=== PATIENT | male | born 1975 | race Caucasian/White ===

== ENCOUNTER 2018-04-30 12:53 | Inpatient (IN) ==
--- NOTE | 2018-04-30 14:23 | ED ---
HPI General Chief complaint: Extremity Problem,Nontraumatic Stated complaint: Poss blood clot in leg Time Seen by Provider: 04/30/18 14:00 Source: patient and old records reviewed Mode of arrival: ambulatory Limitations: no limitations History of Present Illness HPI Narrative: Patient sent from Dr. Adams's office after ultrasound of left lower extremity showed a DVT of the left superficial femoral, popliteal, peroneal, posterior tibial vein. Patient states that he has had increasing pain in the leg for the past 3 days. MD Complaint: Reports extremity pain Onset (ago): day(s) (2) Pain Consistency: constant Location: Reports left and lower extremity Severity scale (1-10): 8 Quality: Reports stabbing and aching Radiation: Reports none Relieving factors: nothing Related Data Home Medications Medication Instructions Recorded Confirmed hydrocodone-acetaminophen 1 tab PO Q4H 04/30/18 04/30/18 Allergies Allergy/AdvReac Type Severity Reaction Status Date / Time bee venom protein (honey bee) Allergy Anaphylaxis Verified 04/30/18 14:04 [Bee sting] Review of Systems ROS: all other systems reviewed are negative [facility] Medical History Medical History Chronic pain (Acute) Left knee injury (Acute) Seizure (Acute) Surgical History Surgical History History of appendectomy (Acute) Hx of tonsillectomy (Acute) Social History Social History Substance History: Active Abuse Second Hand Smoke Exposure: No Smoking Status: Former smoker How Often Do You Have a Drink Containing Alcohol: 2 to 3 times a week Recent Travel in [facility] within the Last 8 Weeks: No Recent Out of Country Travel within the Last 8 Weeks: No Substance Abuse Detail Marijuana: Substance Use Status: Active Reason for Use: Get High Immunization History Tetanus Immunization: >5 Years Exam Const General: healthy appearing, no acute distress and anxious Orientation: alert and awake HENMT Head: normal to inspection and atraumatic Mouth: oral mucosae normal and moist mucous membranes Eyes Alignment and Position: position normal Periorbital: periorbital findings normal Conjunctivae: conjunctivae normal Neck Neck: normal visual inspection, full ROM and no lymphadenopathy Chest Chest: normal inspection of the chest, no masses and no tenderness Resp Effort & Inspection: normal respiratory effort and able to speak in complete sentences Auscultation: clear to auscultation bilaterally Cardio Rate: regular rate Rhythm: regular rhythm Pulses: posterior tibial pulses present Skin General: no rashes or lesions noted, turgor normal and dry skin Neuro General: alert, awake and oriented x3 Speech: speech normal Extrem Left lower extremity: full ROM; no cyanosis and no edema Other: Left lower extremity severe pain to palpation posteriorly from knee to ankle Psych Appearance: grossly normal Affect: normal affect Attitude: cooperative Course Initial Documented Vital Signs Temperature 98.8 F 04/30/18 12:54 Pulse Rate 113 H 04/30/18 12:54 Respiratory Rate 18 04/30/18 12:54 Blood Pressure 126/89 04/30/18 12:54 Pulse Oximetry 97 04/30/18 12:54 Last Documented Vital Signs Temperature 98.8 F 04/30/18 12:54 Pulse Rate 105 H 04/30/18 14:03 Respiratory Rate 18 04/30/18 14:03 Blood Pressure 139/88 04/30/18 14:03 Pulse Oximetry 97 04/30/18 14:03 Medical Decision Making MDM Narrative Medical decision making narrative: Patient has had pain in Dr. Arcos sent him for a ultrasound of his left lower extremity which came back positive for DVT. Will order labs reviewed [facility] which showed a left DVT of the superficial femoral, popliteal, peronial , posterior tibial veins Labs are normal Patient will be admitted for observation of DVT and started on anticoagulation with along with pain control Medical Screen Exam Complete: Yes Emergency Medical Condition: Yes Differential Diagnosis Differential Diagnosis: DVT, Leg pain, muscle pain, muscle cramp Lab Data Lab results reviewed: Yes I reviewed the patient's lab results. Result diagrams: 04/30/18 14:34 04/30/18 14:34 Lab Results 04/30/18 04/30/18 04/30/18 Range/Units 14:34 14:34 14:34 WBC 9.3 (4.0-11.0) th/mm3 RBC 5.26 (4.50-5.90) mil/mm3 Hgb 17.7 H (13.0-17.0) gm/dL Hct 50.2 (39.0-51.0) % MCV 95.4 (80.0-100.0) fL MCH 33.7 (27.0-34.0) pg MCHC 35.3 (32.0-36.0) % RDW 12.8 (11.6-17.2) % Plt Count 214 (150-450) th/mm3 MPV 9.0 (7.0-11.0) fL Prelim Diff (Auto) Slide review pending Neut % (Auto) 72.3 H (16.0-70.0) % Lymph % (Auto) 16.7 (9.0-44.0) % [place] % (Auto) 8.6 H (0.0-8.0) % Eos % (Auto) 1.5 (0.0-4.0) % Baso % (Auto) 0.9 (0.0-2.0) % Neut # (Auto) 6.7 (1.8-7.7) th/mm3 Lymph # (Auto) 1.6 (1.0-4.8) th/mm3 [place] # (Auto) 0.8 (0.0-0.9) th/mm3 Eos # (Auto) 0.1 (0.0-0.4) th/mm3 Baso # (Auto) 0.1 (0.0-0.2) th/mm3 WBC Differential . Diff Scan Auto diff confirmed Differential Comment . Platelet Estimate Normal (Normal) Platelet Morphology Enlarged H (Normal) PT 10.6 (9.8-11.6) sec INR 1.0 Ratio APTT 26.1 (24.3-30.1) sec Sodium 139 (136-145) meq/L Potassium 3.5 (3.5-5.1) meq/L Chloride 106 (98-107) meq/L Carbon Dioxide 23.9 (21.0-32.0) meq/L Anion Gap 9 (5-15) meq/L BUN 7 (7-18) mg/dL Creatinine 1.11 (0.60-1.30) mg/dL Estimated GFR 72 L (>89) mL/min Random Glucose 126 H (74-106) mg/dL Calcium 9.1 (8.5-10.1) mg/dL Total Bilirubin 1.3 H (0.2-1.0) mg/dL AST 19 (15-37) U/L ALT 21 (12-78) U/L Alkaline Phosphatase 147 H (45-117) U/L Total Protein 7.6 (6.4-8.2) g/dL Albumin 3.6 (3.4-5.0) g/dL Discharge Plan Discharge Disposition Patient Disposition: 30 Still Patient Discharge Condition Condition: Stable Discharge Details Diagnosis: Deep vein thrombosis of lower extremity, Intractable pain Physicians Team ED Provider: Radhames Castillo ED Midlevel Provider: Ilene Aburto Primary Care Provider: Primary Care Alem Fofana Attending Provider: Alba Suarez Discharge Interventions Interventions: Vital Signs Last Done: 04/30/18 14:03 Status ED Status: Admitted Patient
[2018-04-30 14:49] LABS: Baso # (Auto) 0.1 th/mm3 (0.0-0.2); Baso % (Auto) 0.9 % (0.0-2.0); Eos # (Auto) 0.1 th/mm3 (0.0-0.4); Eos % (Auto) 1.5 % (0.0-4.0); Hematocrit 50.2 % (39.0-51.0); Hemoglobin 17.7 gm/dL (13.0-17.0); Lymph # (Auto) 1.6 th/mm3 (1.0-4.8); Lymph % (Auto) 16.7 % (9.0-44.0); Mean Corpuscular HGB Conc 35.3 % (32.0-36.0); Mean Corpuscular Hemoglobin 33.7 pg (27.0-34.0); Mean Corpuscular Volume 95.4 fL (80.0-100.0); Mono # (Auto) 0.8 th/mm3 (0.0-0.9); Mono % (Auto) 8.6 % (0.0-8.0); Neut # (Auto) 6.7 th/mm3 (1.8-7.7); Neut % (Auto) 72.3 % (16.0-70.0); Platelet Count 214 th/mm3 (150-450); Red Blood Count 5.26 mil/mm3 (4.50-5.90); Red Cell Distribution Width 12.8 % (11.6-17.2); White Blood Count 9.3 th/mm3 (4.0-11.0)
[2018-04-30 15:00] LABS: Activated Partial Thrombo Time 26.1 sec (24.3-30.1); Prothrombin Time 10.6 sec (9.8-11.6)
[2018-04-30 15:21] LABS: Platelet Estimate Normal (Normal)
[2018-04-30 15:32] LABS: Alanine Aminotransferase 21 U/L (12-78); Albumin 3.6 g/dL (3.4-5.0); Anion Gap 9 meq/L (5-15); Aspartate Aminotransferase 19 U/L (15-37); Blood Urea Nitrogen 7 mg/dL (7-18); Calcium 9.1 mg/dL (8.5-10.1); Carbon Dioxide 23.9 meq/L (21.0-32.0); Chloride 106 meq/L (98-107); Glomerular Filtration Rate 72 mL/min (>89); Glucose,Random 126 mg/dL (74-106); Potassium 3.5 meq/L (3.5-5.1); Sodium 139 meq/L (136-145)
[2018-04-30 15:34] LABS: Alkaline Phosphatase 147 U/L (45-117); Total Protein 7.6 g/dL (6.4-8.2)
[2018-04-30] MEDS ORDERED: Acetaminophen 325 MG Tablet PO PRN (16:58)
[2018-04-30] MEDS ORDERED: Naloxone Inj 0.4 MG/ML Vial IV.PUSH PRN (16:58)
[2018-04-30] MEDS ORDERED: Bisacodyl 10 MG Supp RECTAL PRN (16:58)
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
--- NOTE | 2018-04-30 18:17 | CT ---
EXAM DATE: 04/30/2018 6:06 PM EDT AGE/SEX: 43 years / Male INDICATIONS: Chest Pain CLINICAL DATA: This is the patient's initial encounter. Patient reports that signs and symptoms have been present for 1 day and indicates a pain score of 4/10. MEDICAL/SURGICAL HISTORY: Seizures. Appendectomy. Tonsillectomy. RADIATION DOSE: 10.98 CTDI (mGy) COMPARISON: No prior exams available for comparison. TECHNIQUE: Volumetric scanning was performed using a multi-row detector CT scanner during bolus infu boubacar of 74ML ml Omnipaque 350 (iohexol) nonionic water-soluble contrast as a single exam dose. The d trish was post processed with a variety of visualization algorithms including full volume maximum inten sity projection and sliding thin slab reformation. Using automated exposure control and adjustment o f the mA and/or kV according to patient size, radiation dose was kept as low as reasonably achievable to obtain optimal diagnostic quality images. DICOM format image data is available electronically fo r review and comparison. FINDINGS: Pulmonary Arteries: Bilateral pulmonary emboli, right worse than left. Lung: Mild atelectasis in the right lung base.. Effusion: None. Mediastinum: No evidence of mediastinal or hilar adenopathy. Other: The axilla is unremarkable. Focal fatty infiltration at the falciform ligament of the liver. Upper abdominal viscera is otherwise intact. CONCLUSION: 1. Bilateral pulmonary emboli, right worse than left. 2. Minimal atelectatic changes in the right lung base. Electronically signed by: Fabricio Alonso MD 04/30/2018 6:15 PM EDT
[2018-04-30] MEDS: Enoxaparin Inj 80 MG/0.8 ML Syringe SQ SCH (20:33)
[2018-04-30] MEDS: Divalproex 500 MG ER Tablet PO SCH (20:33)
[2018-04-30] MEDS ORDERED: FYCOMPA PO SCH (21:00)
[2018-05-01] MEDS: Enoxaparin Inj 80 MG/0.8 ML Syringe SQ SCH (05:27)
[2018-05-01 06:23] LABS: Baso # (Auto) 0.1 th/mm3 (0.0-0.2); Baso % (Auto) 0.9 % (0.0-2.0); Eos # (Auto) 0.2 th/mm3 (0.0-0.4); Eos % (Auto) 2.6 % (0.0-4.0); Hematocrit 46.3 % (39.0-51.0); Hemoglobin 16.2 gm/dL (13.0-17.0); Lymph # (Auto) 1.9 th/mm3 (1.0-4.8); Lymph % (Auto) 24.7 % (9.0-44.0); Mean Corpuscular HGB Conc 35.1 % (32.0-36.0); Mean Corpuscular Hemoglobin 33.7 pg (27.0-34.0); Mono # (Auto) 0.8 th/mm3 (0.0-0.9); Mono % (Auto) 10.1 % (0.0-8.0); Neut # (Auto) 4.7 th/mm3 (1.8-7.7); Neut % (Auto) 61.7 % (16.0-70.0); Platelet Count 188 th/mm3 (150-450); Red Blood Count 4.82 mil/mm3 (4.50-5.90); Red Cell Distribution Width 12.9 % (11.6-17.2); White Blood Count 7.7 th/mm3 (4.0-11.0)
[2018-05-01] MEDS: Divalproex 500 MG ER Tablet PO SCH ×2 (08:38→22:46)
--- NOTE | 2018-05-01 10:26 | P.PNIM ---
Subjective Interval history: The patient was resting comfortably in bed. He said that he had some pain in his right lower back and right flank after receiving a Lovenox injection this morning. He was not made aware of the CT findings. He was hopeful to go home in the morning. Discussed with nursing. Physical Exam Vital signs: Vital Signs 04/30/18 12:54 04/30/18 14:03 04/30/18 16:43 Temperature 98.8 F Pulse Rate 113 H 105 H 93 H Respiratory Rate 18 18 18 Blood Pressure 126/89 139/88 159/81 H Pulse Oximetry 97 97 97 04/30/18 16:52 04/30/18 17:30 04/30/18 20:00 Temperature 98.0 F 97.5 F L Pulse Rate 84 95 H Respiratory Rate 18 16 20 Blood Pressure 123/78 135/96 H Pulse Oximetry 97 95 05/01/18 01:06 05/01/18 08:00 Temperature 98.1 F 97.8 F Pulse Rate 79 92 H Respiratory Rate 17 17 Blood Pressure 112/64 105/67 Pulse Oximetry 98 98 Intake & Output 04/30/18 05/01/18 05/01/18 18:59 06:59 18:59 Intake Total 400 / 400 Output Total 380 / 380 Balance -380 / -380 400 / 400 Weight 77.111 kg 77.11 kg Intake: Oral 400 / 400 Output: Urine 380 / 380 Other: # Voids 1 1 Narrative: GENERAL: No distress. SKIN: Warm and dry. HEAD: Atraumatic. Normocephalic. EYES: Pupils equal and round. No scleral icterus. No injection or drainage. ENT: No nasal bleeding or discharge. Mucous membranes pink and moist. NECK: Trachea midline. No JVD. CARDIOVASCULAR: Regular rate and rhythm. RESPIRATORY: No accessory muscle use. Clear to auscultation. Breath sounds equal bilaterally. GASTROINTESTINAL: Abdomen soft, non-tender, nondistended. Hepatic and splenic margins not palpable. MUSCULOSKELETAL: Extremities without clubbing, cyanosis, left lower extremity pain on palpation of the calf and thigh area. No edema. Tenderness to palpation of right lower back. No masses noted. NEUROLOGICAL: Awake and alert to person place time and situation. No obvious cranial nerve deficits. Motor grossly within normal limits. Five out of 5 muscle strength in the arms and legs. Normal speech. PSYCHIATRIC: Appropriate mood and affect; insight and judgment normal. Results - Labs CBC & Chem 7: 05/01/18 05:20 04/30/18 14:34 Laboratory Results - last 24 hr 04/30/18 04/30/18 04/30/18 14:34 14:34 14:34 WBC 9.3 RBC 5.26 Hgb 17.7 H Hct 50.2 MCV 95.4 MCH 33.7 MCHC 35.3 RDW 12.8 Plt Count 214 MPV 9.0 Prelim Diff (Auto) Slide review pending Neut % (Auto) 72.3 H Lymph % (Auto) 16.7 [place] % (Auto) 8.6 H Eos % (Auto) 1.5 Baso % (Auto) 0.9 Neut # (Auto) 6.7 Lymph # (Auto) 1.6 [place] # (Auto) 0.8 Eos # (Auto) 0.1 Baso # (Auto) 0.1 WBC Differential . Diff Scan Auto diff confirmed Differential Comment . Platelet Estimate Normal Platelet Morphology Enlarged H PT 10.6 INR 1.0 APTT 26.1 Sodium 139 Potassium 3.5 Chloride 106 Carbon Dioxide 23.9 Anion Gap 9 BUN 7 Creatinine 1.11 Estimated GFR 72 L Random Glucose 126 H Calcium 9.1 Total Bilirubin 1.3 H AST 19 ALT 21 Alkaline Phosphatase 147 H Total Protein 7.6 Albumin 3.6 05/01/18 05:20 WBC 7.7 RBC 4.82 Hgb 16.2 Hct 46.3 MCV 96.0 MCH 33.7 MCHC 35.1 RDW 12.9 Plt Count 188 MPV 9.0 Prelim Diff (Auto) Neut % (Auto) 61.7 Lymph % (Auto) 24.7 [place] % (Auto) 10.1 H Eos % (Auto) 2.6 Baso % (Auto) 0.9 Neut # (Auto) 4.7 Lymph # (Auto) 1.9 [place] # (Auto) 0.8 Eos # (Auto) 0.2 Baso # (Auto) 0.1 WBC Differential . Diff Scan Differential Comment Auto diff final Platelet Estimate Platelet Morphology PT INR APTT Sodium Potassium Chloride Carbon Dioxide Anion Gap BUN Creatinine Estimated GFR Random Glucose Calcium Total Bilirubin AST ALT Alkaline Phosphatase Total Protein Albumin - Imaging Impressions Chest CTA 04/30/18 00:00 CONCLUSION: 1. Bilateral pulmonary emboli, right worse than left. 2. Minimal atelectatic changes in the right lung base. Assessment and Plan - Assessment (1) Deep vein thrombosis of lower extremity Code(s): I82.409 - Acute embolism and thrombosis of unspecified deep veins of unspecified lower extremity Status: Inactive - Plan DVT/ PEs The pt was sent to the emergency room for left lower leg pain and findings of DVT as an outpatient. CTA indicative of bilateral PEs. Breathing well on room air. Pain controlled at this time. -switch Lovenox to Xarelto this evening. -pain control. -oxygen and nebs as needed. -physical therapy, incentive spirometry. -[facility] consult requested for possible HHC. Seizure disorder Chronic, no current complaints. -resume home Depakote and Fycompa. PPx: Lovenox/ Xarelto Discharge Planning: Anticipate d/c home in AM (1) Deep vein thrombosis of lower extremity Qualifiers: Affected thrombotic vein of extremity: popliteal Chronicity: acute Laterality: left Qualified Code(s): I82.432 - Acute embolism and thrombosis of left popliteal vein
[2018-05-01] MEDS: Morphine Inj 4 MG/ML Vial IV.PUSH PRN (17:34)
[2018-05-01] MEDS ORDERED: Morphine Inj 4 MG/ML Vial IV.PUSH ONE (17:52)
[2018-05-01] MEDS ORDERED: Diatrizoate Meglum/Diatrizoate Sod Liq 9 ML UDC PO ONE (17:53)
[2018-05-01] MEDS ORDERED: Rivaroxaban 15 MG Tablet PO SCH (18:00)
[2018-05-01] MEDS ORDERED: Etomidate Inj 20 MG/10 ML Ampul IV.PUSH ONE (18:21)
[2018-05-01] MEDS ORDERED: Etomidate Inj 40 MG/20 ML Vial IV.PUSH ONE (18:25)
[2018-05-01 18:31] LABS: Albumin 3.2 g/dL (3.4-5.0); Anion Gap 8 meq/L (5-15); Blood Urea Nitrogen 10 mg/dL (7-18); Calcium 8.8 mg/dL (8.5-10.1); Carbon Dioxide 29.8 meq/L (21.0-32.0); Chloride 99 meq/L (98-107); Glomerular Filtration Rate 67 mL/min (>89); Glucose,Random 84 mg/dL (74-106); Lipase 105 U/L (73-393); Potassium 3.9 meq/L (3.5-5.1); Sodium 137 meq/L (136-145)
[2018-05-01 18:33] LABS: Alanine Aminotransferase 19 U/L (12-78); Aspartate Aminotransferase 15 U/L (15-37)
[2018-05-01 18:37] LABS: Alkaline Phosphatase 148 U/L (45-117); Total Protein 7.6 g/dL (6.4-8.2)
[2018-05-01] MEDS ORDERED: Heparin Drip 25,000 UNIT/250 ML BAG IV.CONT PRN (18:40)
[2018-05-01] MEDS ORDERED: Heparin 10,000 UNITS/10 ML Vial (for IV use) IV.PUSH STA (18:40)
[2018-05-01] MEDS ORDERED: Heparin Drip 25,000 UNIT/250 ML BAG IV.CONT ONE (19:07)
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
[2018-05-01] MEDS ORDERED: Heparin 10,000 UNITS/10 ML Vial (for IV use) ONE (19:10)
[2018-05-01 19:15] LABS: Activated Partial Thrombo Time 27.4 sec (24.3-30.1); Prothrombin Time 10.4 sec (9.8-11.6)
--- NOTE | 2018-05-01 19:22 | XR ---
EXAM DATE: 05/01/2018 7:12 PM EDT AGE/SEX: 43 years / Male INDICATIONS: Chest pain. CLINICAL DATA: This is the patient's subsequent encounter. Patient reports that signs and symptoms h ave been present for 2 days and indicates a pain score of 7/10. MEDICAL/SURGICAL HISTORY: . Seizures. . Appendectomy. Tonsillectomy. COMPARISON: No prior exams available for comparison. FINDINGS: Heart size upper limits normal. Mild basilar atelectasis. No significant effusion. No pneumothorax. CONCLUSION: Basilar density which may represent atelectasis. No pneumothorax or significant effusion. Electronically signed by: Nayan Leiva MD 05/01/2018 7:20 PM EDT
[2018-05-01 20:17] LABS: Hematocrit 45.2 % (39.0-51.0); Hemoglobin 15.5 gm/dL (13.0-17.0); Mean Corpuscular HGB Conc 34.4 % (32.0-36.0); Mean Corpuscular Hemoglobin 32.9 pg (27.0-34.0); Mean Corpuscular Volume 95.7 fL (80.0-100.0); Mean Platelet Volume 8.8 fL (7.0-11.0); Platelet Count 209 th/mm3 (150-450); Red Blood Count 4.72 mil/mm3 (4.50-5.90); Red Cell Distribution Width 12.7 % (11.6-17.2); White Blood Count 12.4 th/mm3 (4.0-11.0)
[2018-05-01 21:19] LABS: ABG Base Excess 1.3 mmol/L (-2-2); ABG PCO2 29 mmHg (38-42); ABG PO2 272 mmHG (61-120)
[2018-05-01] MEDS: Heparin Drip 25,000 UNIT/250 ML BAG IV.CONT PRN (21:48)
--- NOTE | 2018-05-01 22:48 | ECG ---
Date Performed: 05/01/2018 Time Performed: 22:31:18 PTAGE: 43 years EKG: SINUS TACHYCARDIA WITH SHORT KS INTERVAL ABNORMAL RHYTHM ECG NO PREVIOUS TRACING DOCTOR: Jeffrey Obrien Interpretating Date/Time 05/01/2018 22:47:30
[2018-05-02 07:32] LABS: Hematocrit 46.4 % (39.0-51.0); Hemoglobin 16.2 gm/dL (13.0-17.0); Mean Corpuscular HGB Conc 34.9 % (32.0-36.0); Mean Corpuscular Hemoglobin 33.7 pg (27.0-34.0); Mean Corpuscular Volume 96.4 fL (80.0-100.0); Mean Platelet Volume 8.5 fL (7.0-11.0); Platelet Count 202 th/mm3 (150-450); Red Blood Count 4.81 mil/mm3 (4.50-5.90); Red Cell Distribution Width 12.7 % (11.6-17.2); White Blood Count 9.8 th/mm3 (4.0-11.0)
[2018-05-02 07:58] LABS: Anion Gap 7 meq/L (5-15); Blood Urea Nitrogen 11 mg/dL (7-18); Chloride 99 meq/L (98-107); Glomerular Filtration Rate 77 mL/min (>89); Glucose,Random 91 mg/dL (74-106); Potassium 3.9 meq/L (3.5-5.1); Sodium 137 meq/L (136-145)
[2018-05-02] MEDS: Divalproex 500 MG ER Tablet PO SCH ×2 (08:27→21:35)
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
[2018-05-02 10:25] LABS: Bilirubin,Urine Negative (Negative); Clarity,Urine Clear (Clear); Color,Urine Yellow (Yellw/Straw); Glucose,Urine (UA) Negative (Negative); Leukocyte Esterase,Urine Negative (Negative); Mucus,Urine Few /lpf (Occasional); Nitrite,Urine Negative (Negative); Specific Gravity,Urine 1.024 (1.002-1.035); Squamous Epithelial Cell,Urine <1 /hpf (0-5)
--- NOTE | 2018-05-02 11:10 | ECHRPT ---
Indication: RIGHT HEART STRAIN/ PE CONCLUSIONS Normal left ventricular size. Wall thickness is normal. The left ventricular systolic function is low normal with an estimated ejection fraction in the rang e of 50%. The right ventricular size is normal. The right ventricular systoilc function is normal. The estimated pulmonary arterial pressure is 18 mmHg. (done STAT- called to Dr Ellis 20:37 05/01/18) BP: / HR: Rhythm: MEASUREMENTS (Male / Female) Normal Values Technical Quality: 2D ECHO LV Diastolic Diameter PLAX 4.5 cm 4.2 - 5.9 / 3.9 - 5.3 cm LV Systolic Diameter PLAX 3.6 cm IVS Diastolic Thickness 0.8 cm 0.6 - 1.0 / 0.6 - 0.9 cm LVPW Diastolic Thickness 0.8 cm 0.6 - 1.0 / 0.6 - 0.9 cm LV Relative Wall Thickness 0.3 RV Internal Dim ED PLAX 2.0 cm DOPPLER Mitral E Point Velocity 54.3 cm/s Mitral A Point Velocity 56.8 cm/s Mitral E to A Ratio 1.0 TR Peak Velocity 177.0 cm/s TR Peak Gradient 12.5 mmHg FINDINGS LEFT VENTRICLE Normal left ventricular size. Wall thickness is normal. The left ventricular systolic function is low normal with an estimated ejection fraction in the rang e of 50%. RIGHT VENTRICLE The right ventricular size is normal. The right ventricular systoilc function is normal. LEFT ATRIUM The left atrial size is normal. RIGHT ATRIUM The right atrial size is normal. ATRIAL SEPTUM Normal atrial septal thickness without atrial level shunting by limited color doppler interrogation. AORTA The aortic root and proximal ascending aorta are normal in size on limited imaging. MITRAL VALVE Structurally normal mitral valve. No mitral valve stenosis or regurgitation. AORTIC VALVE Trileaflet aortic valve. No aortic valve stenosis or regurgitation. TRICUSPID VALVE The estimated pulmonary arterial pressure is 18 mmHg. PULMONARY VALVE The pulmonary valve is not well visualized. VESSELS The inferior vena cava is normal in size. PERICARDIUM No pericardial effusion. Erin Gilliam MD, FACC (Electronically Signed) Final Date:02 May 2018 11:08
[2018-05-02] MEDS: Heparin Drip 25,000 UNIT/250 ML BAG IV.CONT PRN (11:59)
[2018-05-02] MEDS: Morphine Inj 4 MG/ML Vial IV.PUSH PRN (15:31)
[2018-05-03] MEDS: Heparin Drip 25,000 UNIT/250 ML BAG IV.CONT PRN ×2 (02:41→22:32)
[2018-05-03] MEDS: Morphine Inj 4 MG/ML Vial IV.PUSH PRN ×2 (06:13→13:15)
[2018-05-03] MEDS: Divalproex 500 MG ER Tablet PO SCH ×2 (08:27→22:18)
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
[2018-05-03 10:24] LABS: Hematocrit 44.6 % (39.0-51.0); Hemoglobin 15.2 gm/dL (13.0-17.0); Mean Corpuscular HGB Conc 34.2 % (32.0-36.0); Mean Corpuscular Volume 96.4 fL (80.0-100.0); Platelet Count 199 th/mm3 (150-450); Red Blood Count 4.62 mil/mm3 (4.50-5.90); Red Cell Distribution Width 12.7 % (11.6-17.2); White Blood Count 11.2 th/mm3 (4.0-11.0)
[2018-05-03 11:47] LABS: Calcium 8.9 mg/dL (8.5-10.1); Carbon Dioxide 34.8 meq/L (21.0-32.0); Magnesium 2.2 mg/dL (1.5-2.5); Phosphorus 3.6 mg/dL (2.5-4.9); Potassium 3.9 meq/L (3.5-5.1)
--- NOTE | 2018-05-03 12:53 | XR ---
EXAM DATE: 05/03/2018 12:33 PM EDT AGE/SEX: 43 years / Male INDICATIONS: Shortness of breath. CLINICAL DATA: This is the patient's subsequent encounter. Patient reports that signs and symptoms h ave been present for 3 days and indicates a pain score of 0/10. MEDICAL/SURGICAL HISTORY: Seizures. Appendectomy. Tonsillectomy. COMPARISON: [facility] [place], CHEST 1V SINGLE AP, 05/01/2018. . FINDINGS: Moderate parenchymal changes right base. Left lung clear. The heart and pulmonary vascularity are normal. The portion of the bony skeleton visualized is unremarkable. CONCLUSION: Moderate parental changes right base. Inflammatory process would be consideration Electronically signed by: Chapin Palacios MD 05/03/2018 12:52 PM EDT
[2018-05-04] MEDS: Morphine Inj 4 MG/ML Vial IV.PUSH PRN ×5 (00:39→23:33)
[2018-05-04 06:15] LABS: Baso % (Auto) 0.2 % (0.0-2.0); Eos # (Auto) 0.1 th/mm3 (0.0-0.4); Eos % (Auto) 0.8 % (0.0-4.0); Hematocrit 40.7 % (39.0-51.0); Hemoglobin 14.2 gm/dL (13.0-17.0); Lymph % (Auto) 12.5 % (9.0-44.0); Mean Corpuscular HGB Conc 34.9 % (32.0-36.0); Mean Corpuscular Hemoglobin 33.4 pg (27.0-34.0); Mean Corpuscular Volume 95.6 fL (80.0-100.0); Mean Platelet Volume 9.3 fL (7.0-11.0); Mono # (Auto) 0.9 th/mm3 (0.0-0.9); Mono % (Auto) 11.2 % (0.0-8.0); Neut # (Auto) 6.1 th/mm3 (1.8-7.7); Neut % (Auto) 75.3 % (16.0-70.0); Platelet Count 207 th/mm3 (150-450); Red Blood Count 4.26 mil/mm3 (4.50-5.90); Red Cell Distribution Width 12.6 % (11.6-17.2); White Blood Count 8.2 th/mm3 (4.0-11.0)
[2018-05-04 06:31] LABS: Anion Gap 8 meq/L (5-15); Blood Urea Nitrogen 8 mg/dL (7-18); Calcium 8.7 mg/dL (8.5-10.1); Carbon Dioxide 32.8 meq/L (21.0-32.0); Chloride 94 meq/L (98-107); Glomerular Filtration Rate Greater Than 89 mL/min (>89); Glucose,Random 87 mg/dL (74-106); Magnesium 2.1 mg/dL (1.5-2.5); Phosphorus 3.9 mg/dL (2.5-4.9); Potassium 3.9 meq/L (3.5-5.1); Sodium 135 meq/L (136-145)
[2018-05-04] MEDS: Divalproex 500 MG ER Tablet PO SCH ×2 (08:39→20:08)
--- NOTE | 2018-05-04 10:05 | P.PNIM ---
Subjective Interval history: The patient was resting in bed. He complained of 8 out of 10 pain in his right upper back. He says he has been coughing up some mucus with blood in it. He has not been ambulating much. He has been having a headache. Family at the bedside. Their questions were answered. Discussed with nursing. Physical Exam Vital signs: Vital Signs 05/03/18 10:00 05/03/18 11:00 05/03/18 12:00 Temperature 98.8 F Pulse Rate 84 92 H 80 Respiratory Rate 12 22 12 Blood Pressure 119/70 119/78 101/69 Pulse Oximetry 98 99 98 05/03/18 13:00 05/03/18 13:01 05/03/18 14:00 Temperature Pulse Rate 96 H 99 H 93 H Respiratory Rate 27 H 33 H 19 Blood Pressure 142/71 H 127/75 Pulse Oximetry 97 96 99 05/03/18 15:00 05/03/18 16:00 05/03/18 17:00 Temperature 98.5 F Pulse Rate 88 84 83 Respiratory Rate 16 8 L 10 L Blood Pressure 111/79 114/71 100/73 Pulse Oximetry 99 97 98 05/03/18 18:00 05/03/18 19:00 05/03/18 19:20 Temperature Pulse Rate 84 82 Respiratory Rate 10 L 7 L 10 L Blood Pressure 117/71 102/73 Pulse Oximetry 97 98 05/03/18 20:00 05/03/18 21:00 05/03/18 22:00 Temperature 98.8 F Pulse Rate 96 H 117 H 109 H Respiratory Rate 14 36 H 31 H Blood Pressure 111/75 119/91 H Pulse Oximetry 98 96 95 05/03/18 22:15 05/03/18 23:00 05/04/18 00:00 Temperature 98.4 F Pulse Rate 105 H 100 H 92 H Respiratory Rate 31 H 19 20 Blood Pressure 112/70 112/70 113/72 Pulse Oximetry 98 95 96 05/04/18 00:18 05/04/18 01:00 05/04/18 02:00 Temperature Pulse Rate 92 H 122 H 92 H Respiratory Rate 16 25 H 10 L Blood Pressure 116/83 103/57 L Pulse Oximetry 92 L 86 L 05/04/18 03:00 05/04/18 04:00 05/04/18 05:00 Temperature 98.5 F Pulse Rate 90 90 88 Respiratory Rate 9 L 25 H 9 L Blood Pressure 95/60 L 108/65 102/60 Pulse Oximetry 100 95 97 05/04/18 06:00 05/04/18 07:00 Temperature Pulse Rate 99 H 98 H Respiratory Rate 19 21 Blood Pressure 109/73 115/75 Pulse Oximetry 97 93 L Intake & Output 05/03/18 05/04/18 05/04/18 18:59 06:59 18:59 Intake Total 900 / 900 730 / 730 Output Total 500 / 500 550 / 550 Balance 400 / 400 180 / 180 Weight 77.11 kg Intake: IV 250 / 250 Heparin/D5W 25,000 U/250 mL 25, 250 / 250 000 unit In 250 ml @ Per Protocol IV.CONT TITRATE PRN Rx #:[id number] Oral 900 / 900 480 / 480 Output: Urine 500 / 500 550 / 550 Other: # Voids 3 Date of Last Bowel Movement 04/30/18 # Bowel Movements 0 Narrative: GENERAL: No distress. HEAD: Atraumatic. Normocephalic. EYES: Pupils equal and round. No scleral icterus. ENT: No nasal bleeding or discharge. Mucous membranes pink and moist. NECK: Trachea midline. No JVD appreciated. CARDIOVASCULAR: RRR. No murmurs, rubs or gallops. RESPIRATORY: CTAB. No W/R/R. GASTROINTESTINAL: Abdomen soft, non-tender, nondistended. Bowel sounds present. MUSCULOSKELETAL: Extremities without clubbing, cyanosis. Mild left lower leg edema. NEUROLOGICAL: Awake and alert. No obvious cranial nerve deficits. Motor grossly within normal limits. Normal speech. Results - Labs CBC & Chem 7: 05/04/18 05:29 05/04/18 05:29 Laboratory Results - last 24 hr 05/03/18 05/03/18 05/03/18 08:57 08:57 10:59 WBC 11.2 H RBC 4.62 Hgb 15.2 Hct 44.6 MCV 96.4 MCH 33.0 MCHC 34.2 RDW 12.7 Plt Count 199 MPV 10.0 Neut % (Auto) Lymph % (Auto) Meriwether % (Auto) Eos % (Auto) Baso % (Auto) Neut # (Auto) Lymph # (Auto) Meriwether # (Auto) Eos # (Auto) Baso # (Auto) WBC Differential Differential Comment APTT 52.5 H Sodium 133 L Potassium 3.9 Chloride 94 L Carbon Dioxide 34.8 H Anion Gap 4 L BUN 8 Creatinine 0.93 Estimated GFR 88 L Random Glucose 93 Calcium 8.9 Phosphorus 3.6 Magnesium 2.2 05/04/18 05/04/18 05/04/18 05:29 05:29 05:29 WBC 8.2 RBC 4.26 L Hgb 14.2 Hct 40.7 MCV 95.6 MCH 33.4 MCHC 34.9 RDW 12.6 Plt Count 207 MPV 9.3 Neut % (Auto) 75.3 H Lymph % (Auto) 12.5 Meriwether % (Auto) 11.2 H Eos % (Auto) 0.8 Baso % (Auto) 0.2 Neut # (Auto) 6.1 Lymph # (Auto) 1.0 Meriwether # (Auto) 0.9 Eos # (Auto) 0.1 Baso # (Auto) 0.0 WBC Differential . Differential Comment Auto diff final APTT 46.0 H Sodium 135 L Potassium 3.9 Chloride 94 L Carbon Dioxide 32.8 H Anion Gap 8 BUN 8 Creatinine 0.81 Estimated GFR Greater than 89 Random Glucose 87 Calcium 8.7 Phosphorus 3.9 Magnesium 2.1 - Imaging Impressions Chest X-Ray 05/03/18 00:00 CONCLUSION: Moderate parental changes right base. Inflammatory process would be consideration Assessment and Plan - Assessment (1) Deep vein thrombosis of lower extremity Code(s): I82.409 - Acute embolism and thrombosis of unspecified deep veins of unspecified lower extremity Status: Inactive - Plan DVT/ PEs The pt was sent to the emergency room for left lower leg pain and findings of DVT as an outpatient. CTA indicative of bilateral PEs. He developed acute hypoxemic respiratory failure and was transferred to the ICU. He was started on a heparin gtt. Stat 2D echo: EF 50%, no obvious RV strain. -continue heparin gtt. -pain control with oxycodone and morphine. -oxygen and nebs as needed. -physical therapy, incentive spirometry. -repeat CXR. Get sputum culture. -consider switching to Xarelto soon. -case reviewer consult requested for possible HHC. Seizure disorder Chronic, no current complaints. -resume home Depakote and Fycompa. PPx: Heparin gtt Discharge Planning: Transfer to floor (1) Deep vein thrombosis of lower extremity Qualifiers: Affected thrombotic vein of extremity: popliteal Chronicity: acute Laterality: left Qualified Code(s): I82.432 - Acute embolism and thrombosis of left popliteal vein
--- NOTE | 2018-05-04 10:49 | XR ---
EXAM DATE: 05/04/2018 10:46 AM EDT AGE/SEX: 43 years / Male INDICATIONS: Cough. CLINICAL DATA: This is the patient's initial encounter. Patient reports that signs and symptoms have been present for 3 days and indicates a pain score of 7/10. MEDICAL/SURGICAL HISTORY: Seizures. Appendectomy. Tonsillectomy. COMPARISON: [facility] [place], CHEST 1V SINGLE AP, 05/03/2018. . FINDINGS: A single AP view of the chest demonstrates small right pleural effusion and right basilar density. Le ft lung clear. Heart normal in size The cardiomediastinal contours are unremarkable. Osseous struct ures are intact. CONCLUSION: Small right pleural effusion and right basilar infiltrate. Electronically signed by: Singh Jefferson MD 05/04/2018 10:48 AM EDT
[2018-05-04] MEDS: Heparin Drip 25,000 UNIT/250 ML BAG IV.CONT PRN (13:52)
[2018-05-04] MEDS: Azithromycin Inj 500 MG in Sodium Chlor 0.9% Inj 250 ML IV.SIG SCH (20:08)
[2018-05-05] MEDS: Heparin Drip 25,000 UNIT/250 ML BAG IV.CONT PRN ×2 (05:29→23:11)
[2018-05-05 07:34] LABS: Baso % (Auto) 0.4 % (0.0-2.0); Eos # (Auto) 0.1 th/mm3 (0.0-0.4); Eos % (Auto) 0.8 % (0.0-4.0); Hemoglobin 14.1 gm/dL (13.0-17.0); Lymph # (Auto) 0.6 th/mm3 (1.0-4.8); Mean Corpuscular HGB Conc 35.4 % (32.0-36.0); Mean Corpuscular Hemoglobin 33.9 pg (27.0-34.0); Mean Corpuscular Volume 95.8 fL (80.0-100.0); Mean Platelet Volume 10.1 fL (7.0-11.0); Mono # (Auto) 0.9 th/mm3 (0.0-0.9); Mono % (Auto) 11.1 % (0.0-8.0); Neut # (Auto) 6.4 th/mm3 (1.8-7.7); Neut % (Auto) 80.7 % (16.0-70.0); Platelet Count 225 th/mm3 (150-450); Red Blood Count 4.17 mil/mm3 (4.50-5.90); Red Cell Distribution Width 12.4 % (11.6-17.2)
[2018-05-05 07:46] LABS: Anion Gap 7 meq/L (5-15); Blood Urea Nitrogen 6 mg/dL (7-18); Calcium 9.1 mg/dL (8.5-10.1); Carbon Dioxide 34.4 meq/L (21.0-32.0); Chloride 93 meq/L (98-107); Glomerular Filtration Rate Greater Than 89 mL/min (>89); Glucose,Random 82 mg/dL (74-106); Magnesium 1.9 mg/dL (1.5-2.5); Phosphorus 2.6 mg/dL (2.5-4.9); Potassium 3.8 meq/L (3.5-5.1); Sodium 134 meq/L (136-145)
[2018-05-05] MEDS: Divalproex 500 MG ER Tablet PO SCH ×2 (08:48→21:42)
--- NOTE | 2018-05-05 10:08 | P.PNIM ---
Subjective Interval history: The patient was complaining of constipation. He said his headache was better. He still has been coughing up a lot of mucus. He would like to be transferred to a room with a bathroom. Physical Exam Vital signs: Vital Signs 05/04/18 11:00 05/04/18 12:00 05/04/18 13:00 Temperature 98.3 F Pulse Rate 98 H 102 H 109 H Respiratory Rate 11 L 10 L 22 Blood Pressure 104/64 108/62 121/75 Pulse Oximetry 92 L 92 L 91 L 05/04/18 14:00 05/04/18 15:00 05/04/18 16:00 Temperature 98.3 F Pulse Rate 102 H 86 94 H Respiratory Rate 20 9 L 27 H Blood Pressure 105/71 113/67 117/83 Pulse Oximetry 96 96 96 05/04/18 17:00 05/04/18 18:00 05/04/18 18:53 Temperature Pulse Rate 92 H 83 Respiratory Rate 9 L 10 L 24 Blood Pressure 122/82 101/69 Pulse Oximetry 99 96 05/04/18 19:00 05/04/18 20:00 05/04/18 21:00 Temperature 99.1 F Pulse Rate 85 87 90 Respiratory Rate 19 0 L 14 Blood Pressure 111/72 111/72 108/69 Pulse Oximetry 97 97 96 05/04/18 22:00 05/04/18 23:00 05/05/18 00:00 Temperature 97.8 F Pulse Rate 78 73 94 H Respiratory Rate 14 10 L 18 Blood Pressure 96/63 L 101/62 112/74 Pulse Oximetry 99 100 89 L 05/05/18 01:00 05/05/18 02:00 05/05/18 03:00 Temperature Pulse Rate 94 H 119 H 88 Respiratory Rate 13 32 H 10 L Blood Pressure 114/77 163/93 H 107/67 Pulse Oximetry 93 L 93 L 98 05/05/18 04:00 05/05/18 04:13 05/05/18 05:00 Temperature Pulse Rate 103 H 99 H 87 Respiratory Rate 30 H 27 H 11 L Blood Pressure 118/70 96/62 L Pulse Oximetry 96 93 L 95 05/05/18 06:00 05/05/18 07:00 05/05/18 08:00 Temperature Pulse Rate 84 93 H 109 H Respiratory Rate 10 L 11 L 31 H Blood Pressure 100/59 L 109/74 Pulse Oximetry 96 97 96 05/05/18 08:12 05/05/18 09:00 Temperature 98.4 F Pulse Rate 100 H 84 Respiratory Rate 18 10 L Blood Pressure 103/65 106/67 Pulse Oximetry 95 97 Intake & Output 05/04/18 05/05/18 05/05/18 18:59 06:59 18:59 Intake Total 730 / 730 1320 / 1320 Output Total 800 / 800 600 / 600 Balance -70 / -70 720 / 720 Weight 77 kg Intake: IV 250 / 250 600 / 600 Heparin/D5W 25,000 U/250 mL 25, 250 / 250 250 / 250 000 unit In 250 ml @ Per Protocol IV.CONT TITRATE PRN Rx #:[id number] Azithromycin Inj 500 MG In NS 250 / 250 Inj 250 ML @ 250 mls/hr IV.SIG Q24H NICHOLE Rx#:[id number] Rocephin Inj 1,000 MG In NS Inj 100 / 100 100 ML @ 200 mls/hr IV.SIG Q24H N[place]LE Rx#:[id number] Oral 480 / 480 720 / 720 Output: Urine 800 / 800 600 / 600 Narrative: GENERAL: No distress. HEAD: Atraumatic. Normocephalic. EYES: Pupils equal and round. No scleral icterus. ENT: No nasal bleeding or discharge. Mucous membranes pink and moist. NECK: Trachea midline. No JVD appreciated. CARDIOVASCULAR: RRR. No murmurs, rubs or gallops. RESPIRATORY: CTAB. No W/R/R. GASTROINTESTINAL: Abdomen soft, non-tender, nondistended. Bowel sounds present. MUSCULOSKELETAL: Extremities without clubbing, cyanosis. Mild left lower leg edema. NEUROLOGICAL: Awake and alert. No obvious cranial nerve deficits. Motor grossly within normal limits. Normal speech. Results - Labs CBC & Chem 7: 05/05/18 03:59 05/05/18 03:59 Laboratory Results - last 24 hr 05/05/18 05/05/18 05/05/18 03:59 03:59 03:59 WBC 8.0 RBC 4.17 L Hgb 14.1 Hct 40.0 MCV 95.8 MCH 33.9 MCHC 35.4 RDW 12.4 Plt Count 225 MPV 10.1 Neut % (Auto) 80.7 H Lymph % (Auto) 7.0 L Tate % (Auto) 11.1 H Eos % (Auto) 0.8 Baso % (Auto) 0.4 Neut # (Auto) 6.4 Lymph # (Auto) 0.6 L Tate # (Auto) 0.9 Eos # (Auto) 0.1 Baso # (Auto) 0.0 WBC Differential . Differential Comment Auto diff final APTT 41.4 H Sodium 134 L Potassium 3.8 Chloride 93 L Carbon Dioxide 34.4 H Anion Gap 7 BUN 6 L Creatinine 0.73 Estimated GFR Greater than 89 Random Glucose 82 Calcium 9.1 Phosphorus 2.6 D Magnesium 1.9 - Imaging Impressions Chest X-Ray 05/04/18 10:04 CONCLUSION: Small right pleural effusion and right basilar infiltrate. Assessment and Plan - Plan DVT/ PEs The pt was sent to the emergency room for left lower leg pain and findings of DVT as an outpatient. CTA indicative of bilateral PEs. He developed acute hypoxemic respiratory failure and was transferred to the ICU. He was started on a heparin gtt. Stat 2D echo: EF 50%, no obvious RV strain. -continue heparin gtt. Will switch to Xarelto when nearing discharge. -pain control with oxycodone and morphine. -oxygen and nebs as needed. -physical therapy, incentive spirometry. -case preparer and liner consult requested for possible HHC. Pneumonia CXR with evidence of right sided infiltrate. -continue ceftriaxone and azithromycin IV (started 05/04). -sputum culture. -oxygen and nebs. Migraine Improved with Reglan and pain meds. -Reglan and pain meds as needed. Constipation S/t narcotics. -increase bowel regimen. Seizure disorder Chronic, no current complaints. -resume home Depakote and Fycompa. PPx: Heparin gtt Discharge Planning: Transfer to floor
[2018-05-05] MEDS: Polyethylene Glycol 3350 17 GM Packet PO SCH (11:10)
[2018-05-05] MEDS: Senna/Docusate Sodium 8.6/50 MG Tablet PO SCH ×2 (11:10→21:43)
[2018-05-05] MEDS: Azithromycin Inj 500 MG in Sodium Chlor 0.9% Inj 250 ML IV.SIG SCH (21:42)
[2018-05-06] MEDS: Senna/Docusate Sodium 8.6/50 MG Tablet PO SCH ×2 (08:48→21:20)
[2018-05-06] MEDS: Divalproex 500 MG ER Tablet PO SCH ×2 (08:49→21:21)
[2018-05-06] MEDS: Polyethylene Glycol 3350 17 GM Packet PO SCH (09:27)
[2018-05-06 09:41] LABS: Factor V Leiden Mutation Negative (Negative); Protein C Functional 81 % (70 - 150)
[2018-05-06] MEDS ORDERED: Benzocaine/Menthol 15 MG/3.6 MG SF Lozenge BUCCAL PRN (11:48)
--- NOTE | 2018-05-06 11:50 | P.DCO ---
- Diagnosis (1) Bilateral pulmonary embolism Status: Acute (2) Left leg DVT Status: Acute (3) Respiratory distress Status: Acute - Physical Therapy Order: Evaluate and treat - Home Health Nursing Order: Medical education, Signs/symptoms of disease process, Nursing assessment with vital signs - Case Management Consult Yes - Certification I have seen patient Louie Latif on 05/06/18. My clinical findings support the need for the requested home health care services because: Left leg DVT, bilateral pulmonary emboli, respiratory distress, prolonged bedrest leading to weakness. Patient has SOB, Deconditioned with increased weakness, High risk of falls I certify that my clinical findings support that this patient is homebound because: Unsteady gait/balance, Unsafe to leave home unassisted, Need for psychosocial assistance
--- NOTE | 2018-05-06 11:52 | P.PN ---
Subjective Interval history: Follow up for DVT, PE, PNA: c/o feeling poorly, inc. cough, sore throat, bilat chest pain with deep breathing. [place]/brown sputum. No fever. Feels weak, using walker. at bsd Physical Exam Vital signs: Vital Signs 05/05/18 12:00 05/05/18 14:00 05/05/18 16:00 Temperature 98.3 F 98.3 F Pulse Rate 84 86 87 Respiratory Rate 13 22 Blood Pressure 110/74 130/73 Pulse Oximetry 98 94 L 05/05/18 20:00 05/06/18 00:00 05/06/18 04:00 Temperature 98 F 97.9 F 98 F Pulse Rate 97 H 76 84 Respiratory Rate 18 18 16 Blood Pressure 124/81 114/64 106/59 L Pulse Oximetry 95 94 L 93 L 05/06/18 08:00 05/06/18 11:47 Temperature 97.9 F 97.8 F Pulse Rate 92 H 80 Respiratory Rate 18 17 Blood Pressure 124/76 116/87 Pulse Oximetry 94 L 94 L Intake & Output 05/05/18 05/06/18 05/06/18 18:59 06:59 18:59 Intake Total 1320 / 1320 560 / 560 Balance 1320 / 1320 560 / 560 Weight 72.8 kg 75.5 kg Intake: IV 600 / 600 Heparin/D5W 25,000 U/250 mL 25, 250 / 250 000 unit In 250 ml @ Per Protocol IV.CONT TITRATE PRN Rx #:[id number] Azithromycin Inj 500 MG In NS 250 / 250 Inj 250 ML @ 250 mls/hr IV.SIG Q24H [facility] Rx#:[id number] Rocephin Inj 1,000 MG In NS Inj 100 / 100 100 ML @ 200 mls/hr IV.SIG Q24H [facility] Rx#:[id number] Oral 720 / 720 560 / 560 Other: # Voids 1 5 Date of Last Bowel Movement 05/06/18 05/05/18 # Bowel Movements 1 Weight On Admission 72.8 kg Narrative: GENERAL: No distress. Ill-appearing. HEAD: Atraumatic. Normocephalic. EYES: Pupils equal and round. Mild conjunctival erythema. ENT: No nasal bleeding or discharge. Mucous membranes pink and moist. NECK: Trachea midline. No JVD appreciated. CARDIOVASCULAR: RRR. No murmurs, rubs or gallops. RESPIRATORY: Diminished at bases. GASTROINTESTINAL: Abdomen soft, non-tender, nondistended. Bowel sounds present. MUSCULOSKELETAL: Extremities without clubbing, cyanosis. Mild left lower leg edema. NEUROLOGICAL: Awake and alert. No obvious cranial nerve deficits. Motor grossly within normal limits. Normal speech. Results - Labs CBC & Chem 7: 05/05/18 03:59 05/05/18 03:59 Laboratory Results - last 24 hr 05/02/18 05/02/18 05/06/18 07:16 07:16 09:58 APTT 38.4 H Protein C Activity 81 Protein S Activity 134 Antithrombin III Activ 96 Factor V Leiden Mutat Negative Factor V Leiden Interp . Fact V Leiden Review By See below Prothrombin [id number] Mut Assessment and Plan - Assessment (1) Bilateral pulmonary embolism Code(s): I26.99 - Other pulmonary embolism without acute cor pulmonale Status : Acute (2) Left leg DVT Code(s): I82.402 - Acute embolism and thrombosis of unspecified deep veins of left lower extremity Status: Acute (3) Respiratory distress Code(s): R06.03 - Acute respiratory distress Status: Acute (4) PNA (pneumonia) Code(s): J18.9 - Pneumonia, unspecified organism Status: Acute - Plan The pt was sent to the emergency room for left lower leg pain and findings of DVT as an outpatient. CTA indicative of bilateral PEs. He developed acute hypoxemic respiratory failure and was transferred to the ICU. He was started on a heparin gtt. Stat 2D echo: EF 50%, no obvious RV strain. LLE DVT and bilat PE Echo done EF 50%, no obvious RV strain -continue heparin gtt. Will switch to Xarelto when nearing discharge. -pain control with oxycodone and morphine. -oxygen and nebs as needed. -PT, and OOB daily -IS q 2 Pneumonia CXR with evidence of right sided infiltrate. -continue ceftriaxone and azithromycin IV (started 05/04). -sputum culture. -oxygen and nebs. Migraine Improved with Reglan and pain meds. -Reglan and pain meds as needed. Constipation S/t narcotics. -increase bowel regimen. -inc activity Seizure disorder Chronic, no current complaints. -Depakote and Fycompa. PPx: Heparin gtt CM consult, pt. self pay, can't receive HHC Poss dc 1-2 days Labs reviewed stable. Code Status: Full code Discussed Condition With: RN, pt, , CM Discharge Planning: DC poss 2 days with HHC (4) PNA (pneumonia) Qualifiers: Pneumonia type: due to unspecified organism Laterality: right Lung location : lower lobe of lung Qualified Code(s): J18.1 - Lobar pneumonia, unspecified organism
[2018-05-06] MEDS: Heparin Drip 25,000 UNIT/250 ML BAG IV.CONT PRN (16:32)
[2018-05-06 17:30] LABS: Activated Partial Thrombo Time 32.4 sec (23.4-31.7)
[2018-05-06 20:18] LABS: Hematocrit 42.3 % (39.0-51.0); Hemoglobin 14.3 gm/dL (13.0-17.0); Mean Corpuscular HGB Conc 33.7 % (32.0-36.0); Mean Corpuscular Hemoglobin 32.5 pg (27.0-34.0); Mean Corpuscular Volume 96.4 fL (80.0-100.0); Mean Platelet Volume 9.2 fL (7.0-11.0); Platelet Count 294 th/mm3 (150-450); Red Blood Count 4.39 mil/mm3 (4.50-5.90); Red Cell Distribution Width 12.4 % (11.6-17.2); White Blood Count 4.5 th/mm3 (4.0-11.0)
[2018-05-06] MEDS: Azithromycin Inj 500 MG in Sodium Chlor 0.9% Inj 250 ML IV.SIG SCH (21:22)
[2018-05-06] MEDS ORDERED: Heparin 10,000 UNITS/10 ML Vial (for IV use) IV.PUSH PRN ×2 (22:10→22:16)
[2018-05-07 08:09] LABS: Hematocrit 39.7 % (39.0-51.0); Hemoglobin 14.1 gm/dL (13.0-17.0); Mean Corpuscular HGB Conc 35.5 % (32.0-36.0); Mean Corpuscular Hemoglobin 33.9 pg (27.0-34.0); Mean Corpuscular Volume 95.7 fL (80.0-100.0); Mean Platelet Volume 8.5 fL (7.0-11.0); Platelet Count 273 th/mm3 (150-450); Red Blood Count 4.15 mil/mm3 (4.50-5.90); Red Cell Distribution Width 12.6 % (11.6-17.2); White Blood Count 4.1 th/mm3 (4.0-11.0)
[2018-05-07 08:37] LABS: Anion Gap 7 meq/L (5-15); Blood Urea Nitrogen 3 mg/dL (7-18); Calcium 8.7 mg/dL (8.5-10.1); Carbon Dioxide 34.3 meq/L (21.0-32.0); Chloride 99 meq/L (98-107); Glomerular Filtration Rate Greater Than 89 mL/min (>89); Glucose,Random 96 mg/dL (74-106); Potassium 3.4 meq/L (3.5-5.1); Sodium 140 meq/L (136-145)
[2018-05-07] MEDS: Divalproex 500 MG ER Tablet PO SCH ×2 (09:11→21:46)
[2018-05-07] MEDS: Senna/Docusate Sodium 8.6/50 MG Tablet PO SCH ×3 (09:12→21:46)
[2018-05-07] MEDS: Polyethylene Glycol 3350 17 GM Packet PO SCH (09:14)
[2018-05-07] MEDS: Heparin Drip 25,000 UNIT/250 ML BAG IV.CONT PRN (09:19)
--- NOTE | 2018-05-07 10:45 | P.PN ---
Subjective Interval history: Follow up for DVT, PE, PNA: Patient seen and examined, ambulating with walker. Did not sleep much, states that he was interrupted too many times. Still has a cough, productive of nice sputum. No fever. Chest wall pain with coughing. at bedside Physical Exam Vital signs: Vital Signs 05/06/18 11:47 05/06/18 16:00 05/06/18 20:00 Temperature 97.8 F 97.8 F 98.1 F Pulse Rate 80 80 89 Respiratory Rate 17 16 16 Blood Pressure 116/87 109/68 119/67 Pulse Oximetry 94 L 95 95 05/06/18 23:51 05/07/18 00:00 05/07/18 04:00 Temperature 98.1 F 98.3 F Pulse Rate 85 79 77 Respiratory Rate 16 16 Blood Pressure 115/71 123/73 Pulse Oximetry 94 L 95 05/07/18 08:00 Temperature 98.1 F Pulse Rate 74 Respiratory Rate 18 Blood Pressure 115/73 Pulse Oximetry 94 L Intake & Output 05/06/18 05/07/18 05/07/18 18:59 06:59 18:59 Intake Total 1630 / 1630 730 / 730 250 / 250 Output Total 600 / 600 750 / 750 Balance 1030 / 1030 -20 / -20 250 / 250 Weight 76.1 kg Intake: IV 350 / 350 250 / 250 250 / 250 Heparin/D5W 25,000 U/250 mL 25, 250 / 250 250 / 250 000 unit In 250 ml @ 1,400 UNITS/HR 14 mls/hr IV.CONT TITRATE PRN Rx#:[id number] Azithromycin Inj 500 MG In NS 250 / 250 Inj 250 ML @ 250 mls/hr IV.SIG Q24H [facility] Rx#:[id number] Rocephin Inj 1,000 MG In NS Inj 100 / 100 100 ML @ 200 mls/hr IV.SIG Q24H [facility] Rx#:[id number] Oral 1280 / 1280 480 / 480 Output: Urine 600 / 600 750 / 750 Other: Date of Last Bowel Movement 05/05/18 05/06/18 05/06/18 # Bowel Movements 1 0 Narrative: GENERAL: No distress. HEAD: Atraumatic. Normocephalic. EYES: Pupils equal and round. Mild conjunctival erythema. ENT: No nasal bleeding or discharge. Mucous membranes pink and moist. NECK: Trachea midline. No JVD appreciated. CARDIOVASCULAR: RRR. No murmurs, rubs or gallops. RESPIRATORY: Diminished at bases. GASTROINTESTINAL: Abdomen soft, non-tender, nondistended. Bowel sounds present. MUSCULOSKELETAL: Extremities without clubbing, cyanosis. Mild left lower leg edema. NEUROLOGICAL: Awake and alert. No obvious cranial nerve deficits. Motor grossly within normal limits. Normal speech. Results - Labs CBC & Chem 7: 05/08/18 06:49 05/07/18 07:37 Laboratory Results - last 24 hr 05/06/18 05/06/18 05/06/18 09:58 16:37 18:49 WBC 4.5 RBC 4.39 L Hgb 14.3 Hct 42.3 MCV 96.4 MCH 32.5 MCHC 33.7 RDW 12.4 Plt Count 294 D MPV 9.2 PT 10.0 INR 1.0 APTT 38.4 H 32.4 H Sodium Potassium Chloride Carbon Dioxide Anion Gap BUN Creatinine Estimated GFR Random Glucose Calcium 05/07/18 05/07/18 05/07/18 00:16 07:37 07:37 WBC 4.1 RBC 4.15 L Hgb 14.1 Hct 39.7 MCV 95.7 MCH 33.9 MCHC 35.5 RDW 12.6 Plt Count 273 MPV 8.5 PT INR APTT 62.3 H D Sodium 140 Potassium 3.4 L Chloride 99 Carbon Dioxide 34.3 H Anion Gap 7 BUN 3 L Creatinine 0.81 Estimated GFR Greater than 89 Random Glucose 96 Calcium 8.7 05/07/18 07:37 WBC RBC Hgb Hct MCV MCH MCHC RDW Plt Count MPV PT INR APTT 57.4 H Sodium Potassium Chloride Carbon Dioxide Anion Gap BUN Creatinine Estimated GFR Random Glucose Calcium Microbiology 05/06/18 11:35 Stool Stool Occult Blood ([facility]) - Final Hemoccult negative 05/06/18 08:00 Sputum - Expectorated Sputum Gram Stain - Final Assessment and Plan - Assessment (1) Bilateral pulmonary embolism Code(s): I26.99 - Other pulmonary embolism without acute cor pulmonale Status : Acute (2) Left leg DVT Code(s): I82.402 - Acute embolism and thrombosis of unspecified deep veins of left lower extremity Status: Acute (3) Respiratory distress Code(s): R06.03 - Acute respiratory distress Status: Acute (4) PNA (pneumonia) Code(s): J18.9 - Pneumonia, unspecified organism Status: Acute - Plan The pt was sent to the emergency room for left lower leg pain and findings of DVT as an outpatient. CTA indicative of bilateral PEs. He developed acute hypoxemic respiratory failure and was transferred to the ICU. He was started on a heparin gtt. Stat 2D echo: EF 50%, no obvious RV strain. LLE DVT and bilat PE Echo done EF 50%, no obvious RV strain -continue heparin gtt. Will switch to Xarelto when nearing discharge. -pain control with oxycodone and morphine. -oxygen and nebs as needed. -PT, and OOB daily -IS q 2 Pneumonia CXR with evidence of right sided infiltrate. -continue ceftriaxone and azithromycin IV (started 05/04) -sputum culture. -oxygen and nebs. Migraine Improved with Reglan and pain meds. -Reglan and pain meds as needed. Constipation S/t narcotics. -increase bowel regimen. -inc activity Seizure disorder Chronic, no current complaints. -Depakote and Fycompa. PPx: Heparin gtt CM following, will give information on Xarelto Replace K Plan to change to PO abx tomorrow and dc Code Status: Full code Discussed Condition With: RN, pt, , CM Discharge Planning: DC tomorrow (4) PNA (pneumonia) Qualifiers: Pneumonia type: due to unspecified organism Laterality: right Lung location : lower lobe of lung Qualified Code(s): J18.1 - Lobar pneumonia, unspecified organism
[2018-05-07] MEDS ORDERED: Potassium Chloride 25 MEQ Effervescent Tablet PO ONE (11:00)
[2018-05-07] MEDS ORDERED: Benzonatate 100 MG Capsule PO PRN (11:32)
[2018-05-07] MEDS: Azithromycin Inj 500 MG in Sodium Chlor 0.9% Inj 250 ML IV.SIG SCH (21:47)
[2018-05-08] MEDS: Heparin Drip 25,000 UNIT/250 ML BAG IV.CONT PRN (02:04)
[2018-05-08 07:41] LABS: Hematocrit 41.4 % (39.0-51.0); Hemoglobin 14.3 gm/dL (13.0-17.0); Mean Corpuscular HGB Conc 34.6 % (32.0-36.0); Mean Corpuscular Hemoglobin 33.7 pg (27.0-34.0); Mean Corpuscular Volume 97.2 fL (80.0-100.0); Mean Platelet Volume 8.3 fL (7.0-11.0); Platelet Count 287 th/mm3 (150-450); Red Blood Count 4.26 mil/mm3 (4.50-5.90); Red Cell Distribution Width 12.5 % (11.6-17.2)
[2018-05-08] MEDS ORDERED: Potassium Chloride 25 MEQ Effervescent Tablet PO ONE (08:00)
[2018-05-08] MEDS: Divalproex 500 MG ER Tablet PO SCH ×2 (08:29→22:22)
[2018-05-08] MEDS: Senna/Docusate Sodium 8.6/50 MG Tablet PO SCH ×2 (08:29→22:21)
[2018-05-08] MEDS: Polyethylene Glycol 3350 17 GM Packet PO SCH (08:30)
[2018-05-08] MEDS ORDERED: Rivaroxaban 15 MG Tablet PO SCH (09:00)
[2018-05-08] MEDS: Rivaroxaban 15 MG Tablet PO SCH ×2 (11:35→22:21)
--- NOTE | 2018-05-08 16:17 | P.PN ---
Subjective Interval history: Follow up for DVT, PE, PNA: Patient seen and examined, ambulating with walker. Patient states he still feels terrible, still with cough, sputum nice and brown tinge. No fever. Sats 9495% on 2 L. Chest wall hurts when he takes a deep breath. at bedside with multiple questions about his discharge care. Questions answered in detail. Physical Exam Vital signs: Vital Signs 05/07/18 20:00 05/07/18 23:50 05/07/18 23:58 Temperature 98 F Pulse Rate 84 75 Respiratory Rate 15 18 Blood Pressure 118/80 Pulse Oximetry 95 05/08/18 00:00 05/08/18 03:52 05/08/18 04:00 Temperature Pulse Rate 75 Respiratory Rate 17 17 Blood Pressure Pulse Oximetry 05/08/18 05:09 05/08/18 08:00 05/08/18 12:00 Temperature 97.8 F Pulse Rate 71 71 Respiratory Rate 17 18 Blood Pressure 114/79 Pulse Oximetry 94 L 05/08/18 15:06 Temperature Pulse Rate 71 Respiratory Rate Blood Pressure Pulse Oximetry Intake & Output 05/07/18 05/08/18 05/08/18 18:59 06:59 18:59 Intake Total 1210 / 1210 1280 / 1280 150 / 150 Output Total 1000 / 1000 Balance 210 / 210 1280 / 1280 150 / 150 Weight 75.3 kg Intake: IV 250 / 250 600 / 600 150 / 150 Heparin/D5W 25,000 U/250 mL 25, 250 / 250 250 / 250 150 / 150 000 unit In 250 ml @ 1,400 UNITS/HR 14 mls/hr IV.CONT TITRATE PRN Rx#:[id number] Azithromycin Inj 500 MG In NS 250 / 250 Inj 250 ML @ 250 mls/hr IV.SIG Q24H [facility] Rx#:[id number] Rocephin Inj 1,000 MG In NS Inj 100 / 100 100 ML @ 200 mls/hr IV.SIG Q24H [facility] Rx#:[id number] Oral 960 / 960 680 / 680 Output: Urine 1000 / 1000 Other: # Voids 4 Date of Last Bowel Movement 05/06/18 05/06/18 # Bowel Movements 0 1 Narrative: GENERAL: No distress. HEAD: Atraumatic. Normocephalic. EYES: Pupils equal and round. Mild conjunctival erythema. ENT: No nasal bleeding or discharge. Mucous membranes pink and moist. NECK: Trachea midline. No JVD appreciated. CARDIOVASCULAR: RRR. No murmurs, rubs or gallops. RESPIRATORY: Diminished at bases. GASTROINTESTINAL: Abdomen soft, non-tender, nondistended. Bowel sounds present. MUSCULOSKELETAL: Extremities without clubbing, cyanosis. No edema. Pedal pulses 2+ NEUROLOGICAL: Awake and alert. No obvious cranial nerve deficits. Motor grossly within normal limits. Normal speech. Results - Labs CBC & Chem 7: 05/08/18 06:49 05/07/18 07:37 Laboratory Results - last 24 hr 05/08/18 05/08/18 06:49 06:59 WBC 5.0 RBC 4.26 L Hgb 14.3 Hct 41.4 MCV 97.2 MCH 33.7 MCHC 34.6 RDW 12.5 Plt Count 287 MPV 8.3 APTT 48.3 H Microbiology 05/06/18 08:00 Sputum - Expectorated Sputum Gram Stain - Final 05/06/18 08:00 Sputum - Expectorated Sputum Sputum Culture - Final Heavy growth normal respiratory delfina Assessment and Plan - Assessment (1) Bilateral pulmonary embolism Code(s): I26.99 - Other pulmonary embolism without acute cor pulmonale Status : Acute (2) Left leg DVT Code(s): I82.402 - Acute embolism and thrombosis of unspecified deep veins of left lower extremity Status: Acute (3) Respiratory distress Code(s): R06.03 - Acute respiratory distress Status: Acute (4) PNA (pneumonia) Code(s): J18.9 - Pneumonia, unspecified organism Status: Acute - Plan The pt was sent to the emergency room for left lower leg pain and findings of DVT as an outpatient. CTA indicative of bilateral PEs. He developed acute hypoxemic respiratory failure and was transferred to the ICU. He was started on a heparin gtt. Stat 2D echo: EF 50%, no obvious RV strain. LLE DVT and bilat PE Echo done EF 50%, no obvious RV strain -pain control with oxycodone only, will DC morphine -oxygen and nebs as needed. Will start weaning off oxygen -PT, and OOB daily -IS q 2 -Discontinue heparin drip, start Xarelto 15 mg p.o. twice daily times 21 days then transition to 20 mg p.o. daily -H&H stable, Hemoccult negative Pneumonia CXR with evidence of right sided infiltrate. -continue ceftriaxone and azithromycin IV (started 05/04) -sputum culture-negative -oxygen and nebs. -Tessalon Perles as needed Migraine Improved with Reglan and pain meds. -Reglan and pain meds as needed. Constipation S/t narcotics. -increase bowel regimen. -inc activity Seizure disorder Chronic, no current complaints. -Depakote and Fycompa. PPx: Heparin gtt CM following, will give discount card for Xarelto We will monitor 1 more day while on p.o. anticoagulation Plan to discharge tomorrow on p.o. antibiotics Discussed with patient's at length, her questions were answered in detail. Code Status: Full code Discussed Condition With: RN, patient, case management Discharge Planning: DC tomorrow (4) PNA (pneumonia) Qualifiers: Pneumonia type: due to unspecified organism Laterality: right Lung location : lower lobe of lung Qualified Code(s): J18.1 - Lobar pneumonia, unspecified organism
[2018-05-08] MEDS: Azithromycin Inj 500 MG in Sodium Chlor 0.9% Inj 250 ML IV.SIG SCH (22:25)
[2018-05-09] MEDS ORDERED: Sodium Chloride 0.9% 2 ML Flush PRN IV.FLUSH
[2018-05-09] MEDS: Polyethylene Glycol 3350 17 GM Packet PO SCH (08:10)
[2018-05-09] MEDS: Rivaroxaban 15 MG Tablet PO SCH (08:12)
[2018-05-09] MEDS: Divalproex 500 MG ER Tablet PO SCH (08:12)
[2018-05-09] MEDS: Senna/Docusate Sodium 8.6/50 MG Tablet PO SCH (08:12)
[2018-05-09] MEDS ORDERED: Sodium Chloride 0.9% 2 ML Flush BID IV.FLUSH SCH (09:00)
--- NOTE | 2018-05-09 09:19 | P.PN ---
Subjective Interval history: Follow up for DVT, PE, PNA: Patient seen and examined, still with some cough, productive of brown sputum. No fever, room air sats 95%. Ambulating with walker. requesting that I look at patient's back, he complains of a sharp pain to the right flank. She states he has a "bump" there that came overnight. Area around was erythematous. I requested that patient sit up so I can look at his back, he is upset about my request. There are no masses, no erythema. asking if further imaging studies can be done as patient had an accident before admission. I explained that he will need to follow-up with patient's orthopedic surgeon as outpatient for further workup. Patient has been ambulating in the room with walker and was able to sit up with no assist. Patient is requesting more pain medication. He is requesting more narcotics before he goes home. Physical Exam Vital signs: Vital Signs 05/08/18 12:00 05/08/18 15:06 05/08/18 16:00 Temperature 97.9 F 98.0 F Pulse Rate 76 71 87 Respiratory Rate 18 18 Blood Pressure 123/72 112/72 Pulse Oximetry 95 94 L 05/08/18 16:51 05/08/18 19:00 05/08/18 23:55 Temperature Pulse Rate 89 83 85 Respiratory Rate Blood Pressure Pulse Oximetry 05/09/18 00:00 05/09/18 06:00 05/09/18 08:00 Temperature 97.8 F 98.1 F Pulse Rate 73 69 77 Respiratory Rate 18 18 Blood Pressure 114/74 117/69 Pulse Oximetry 93 L 95 Intake & Output 05/08/18 05/09/18 05/09/18 19:59 06:59 18:59 Intake Total Balance Weight Intake: IV Heparin/D5W 25,000 U/250 mL 25, 000 unit In 250 ml @ 1,400 UNITS/HR 14 mls/hr IV.CONT TITRATE PRN Rx#:[id number] Azithromycin Inj 500 MG In NS Inj 250 ML @ 250 mls/hr IV.SIG Q24H [facility] Rx#:[id number] Rocephin Inj 1,000 MG In NS Inj 100 ML @ 200 mls/hr IV.SIG Q24H [facility] Rx#:[id number] Oral Other: # Voids Date of Last Bowel Movement # Bowel Movements Narrative: GENERAL: 43-year-old well-developed well-nourished male. No apparent distress HEAD: Atraumatic. Normocephalic. EYES: Pupils equal and round. Mild conjunctival erythema. ENT: No nasal bleeding or discharge. Mucous membranes pink and moist. NECK: Trachea midline. No JVD appreciated. CARDIOVASCULAR: RRR. No murmurs, rubs or gallops. RESPIRATORY: Diminished at bases. GASTROINTESTINAL: Abdomen soft, non-tender, nondistended. Bowel sounds present. MUSCULOSKELETAL: Extremities without clubbing, cyanosis. No edema. Pedal pulses 2+ NEUROLOGICAL: Awake and alert. No obvious cranial nerve deficits. Motor grossly within normal limits. Normal speech. Results - Labs CBC & Chem 7: 05/08/18 06:49 05/07/18 07:37 Microbiology 05/06/18 08:00 Sputum - Expectorated Sputum Gram Stain - Final 05/06/18 08:00 Sputum - Expectorated Sputum Sputum Culture - Final Heavy growth normal respiratory delfina Assessment and Plan - Assessment (1) Bilateral pulmonary embolism Code(s): I26.99 - Other pulmonary embolism without acute cor pulmonale Status : Acute (2) Left leg DVT Code(s): I82.402 - Acute embolism and thrombosis of unspecified deep veins of left lower extremity Status: Acute (3) Respiratory distress Code(s): R06.03 - Acute respiratory distress Status: Acute (4) PNA (pneumonia) Code(s): J18.9 - Pneumonia, unspecified organism Status: Acute - Plan The pt was sent to the emergency room for left lower leg pain and findings of DVT as an outpatient. CTA indicative of bilateral PEs. He developed acute hypoxemic respiratory failure and was transferred to the ICU. He was started on a heparin gtt. Stat 2D echo: EF 50%, no obvious RV strain. LLE DVT and bilat PE Echo done EF 50%, no obvious RV strain -pain control with oxycodone only, will DC morphine -oxygen and nebs as needed. Will start weaning off oxygen -PT, and OOB daily -IS q 2 -Discontinued heparin drip yesterday, started Xarelto 15 mg p.o. twice daily times 21 days then transition to 20 mg p.o. daily -H&H stable, Hemoccult negative -Discussed with patient and in detail about compliance with medication, side effects etc. Pneumonia CXR with evidence of right sided infiltrate. -continue ceftriaxone and azithromycin IV (started 05/04) -sputum culture-negative -oxygen and nebs. -Tessalon Perles as needed -On room air, afebrile. Can continue on amoxicillin p.o. as outpatient Migraine Improved with Reglan and pain meds. -Reglan and pain meds as needed. Constipation S/t narcotics. -increase bowel regimen. -inc activity Seizure disorder Chronic, no current complaints. -Depakote and Fycompa. PPx: Xarelto CM following, will give discount card for Xarelto Tolerated Xarelto well, no hemoptysis next H&H stable next no fever, on room air Patient stable for discharge Discharge home today Follow-up with primary care in 7-10 days Follow-up with orthopedic surgeon as outpatient as needed Heart healthy diet Instructed to increase water intake and wean off narcotics to prevent constipation Activity as tolerated Code Status: Full code Discussed Condition With: RN, patient, case management Discharge Planning: NH today [employer] Prescription Drug Monitoring Database has been queried and verified prior to prescribing the controlled substance. Acute pain exception. This patient has normal, predicted, physiological, and time limited response to an adverse mechanical stimulus associated with surgery, trauma, or acute illness as described in my notes. There is a lack of alternative treatment options other than to include the prescribed narcotic treatment for this condition. Last narc rx 04/26/2018 hydrocodone/acetaminophen 5/325 #28 (4) PNA (pneumonia) Qualifiers: Pneumonia type: due to unspecified organism Laterality: right Lung location : lower lobe of lung Qualified Code(s): J18.1 - Lobar pneumonia, unspecified organism
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
== END 2018-05-09 13:16 | disposition home or self-care (01) ==
LOC: NEPC 12:53 → INTOOBSV 16:13 → NEDA 16:13 → N07 17:27 → HIMC 05-01 18:10 → N04 05-05 15:47
PROVIDERS: ADMIT Family Medicine; ATTEND Family Medicine